=== PATIENT | female | born 1995 | race American Indian/Alaskan Native ===

== ENCOUNTER 2017-04-19 15:53 | Emergency (ER) | payer SELFPAY ==
[2017-04-19 17:30] LABS: Basophils # (Auto) 0.1 K/mm3 (0.0-0.1); Basophils % (Auto) 0.4 % (0.0-1.8); Eosinophils % (Auto) 0.1 % (0.0-4.3); Hematocrit 40.8 % (30.3-42.9); Hemoglobin 13.6 gm/dl (10.1-14.3); Lymphocytes # (Auto) 1.2 K/mm3 (1.2-5.4); Lymphocytes % (Auto) 9.1 % (13.4-35.0); Mean Corpuscular HGB Conc 33 % (30-34); Mean Corpuscular Hemoglobin 33 pg (28-32); Mean Corpuscular Volume 100 fl (79-97); Monocytes # (Auto) 0.6 K/mm3 (0.0-0.8); Monocytes % (Auto) 4.7 % (0.0-7.3); Platelet Count 442 K/mm3 (140-440); Red Blood Count 4.09 M/mm3 (3.65-5.03); Red Cell Distribution Width 13.5 % (13.2-15.2)
[2017-04-19 17:55] LABS: Bacteria,Urine 4+ /HPF (Negative); Bilirubin,Urine NEG (Negative); Blood,Urine LG (Negative); Color,Urine Yellow (Yellow); Mucus,Urine 1+ /HPF; Nitrite,Urine NEG (Negative)
[2017-04-19 17:58] LABS: HCG Qualitative,Urine Negative (Negative); RBC,Urine > 182.0 /HPF (0.0-6.0)
[2017-04-19 18:16] LABS: BUN/Creatinine Ratio 21; Blood Urea Nitrogen 17 mg/dL (7-17); Calcium 9.7 mg/dL (8.4-10.2); Hemolysis Index 28
[2017-04-19] MEDS ORDERED: MOTRIN PO ONE (22:18)
[2017-04-19] MEDS ORDERED: MORPHINE IV ONE (23:50)
[2017-04-19] MEDS ORDERED: ZOFRAN IV ONE (23:50)
--- NOTE | 2017-04-19 23:51 | Emergency Department Report ---
HPI - General Chief Complaint: Abdominal Pain Time Seen by Provider: 04/19/17 23:37 - HPI HPI: Room 2 The patient is a 21-year-old female presenting with chief complaint of abdominal pain. The patient states this afternoon at 13:00 after laying down she developed pain in her left flank. Patient states the pain has been constant with intermittent sharpness. The patient states motion helped somewhat but the pain is persistent. Patient admits nausea vomiting 1 in addition to hematuria. Patient denies dysuria but states she had vaginal discharge with a string of blood for one day last week. Patient denies history of fever. The patient gives her pain a score of 6/10 Location: [See above] Duration: Started at 13:00 Quality: Pain With a sharp component Severity: 6/10 Modifying factors: [see above] Context: [see above] Mode of transportation: [not driving] ED Past Medical Hx - Past Medical History Previous Medical History?: No - Surgical History Past Surgical History?: No - Family History Family history: no significant - Social History Smoking Status: Never Smoker Substance Use Type: None (denies illicit drug use) - Medications Home Medications: Home Medications Medication Instructions Recorded Confirmed Last Taken Type Ibuprofen [Motrin 800 MG tab] 800 mg PO Q8HR PRN #10 tablet 04/20/17 Unknown Rx traMADol [Ultram] 50 mg PO Q6HR PRN #10 tablet 04/20/17 Unknown Rx ED Review of Systems ROS: Stated complaint: BACK AND ABD PAIN Other details as noted in HPI Constitutional: denies: fever Gastrointestinal: abdominal pain, nausea, vomiting Genitourinary: hematuria, discharge. denies: dysuria Musculoskeletal: back pain Skin: denies: rash, lesions Neurological: denies: headache, weakness, paresthesias Psychiatric: denies: anxiety, depression Hematological/Lymphatic: denies: easy bleeding, easy bruising Physical Exam - Physical Exam Vital Signs: Vital Signs 04/19/17 04/19/17 04/19/17 16:56 23:34 23:35 Temperature 98.8 F Pulse Rate 90 100 H 107 H Respiratory 18 17 14 Rate Blood Pressure 106/60 122/75 O2 Sat by Pulse 100 100 99 Oximetry 04/19/17 23:37 Temperature 97.9 F Pulse Rate Respiratory Rate Blood Pressure O2 Sat by Pulse Oximetry Physical Exam: GENERAL: The patient is well-developed well-nourished female lying on stretcher not appearing to be in acute distress. [] HEENT: Normocephalic. Atraumatic. Extraocular motions are intact. Patient has moist mucous membranes. NECK: Supple. Trachea midline CHEST/LUNGS: Clear to auscultation. There is no respiratory distress noted. HEART/CARDIOVASCULAR: Regular. There is no tachycardia. There is no gallop rub or murmur. ABDOMEN: Abdomen is soft, nontender. Patient has normal bowel sounds. There is no abdominal distention. SKIN: There is no rash. There is no edema. There is no diaphoresis. NEURO: The patient is awake, alert, and oriented. The patient is cooperative. The patient has normal speech MUSCULOSKELETAL: There is left CVA tenderness. There is no evidence of acute injury. PELVIC: Copious thick white discharge present in the vaginal vault. No cervical lesions seen ED Course Vital Signs 04/19/17 04/19/17 04/19/17 16:56 23:34 23:35 Temperature 98.8 F Pulse Rate 90 100 H 107 H Respiratory 18 17 14 Rate Blood Pressure 106/60 122/75 O2 Sat by Pulse 100 100 99 Oximetry 04/19/17 23:37 Temperature 97.9 F Pulse Rate Respiratory Rate Blood Pressure O2 Sat by Pulse Oximetry ED Medical Decision Making - Lab Data Result diagrams: 04/19/17 17:16 04/19/17 17:16 Laboratory Tests 04/19/17 04/19/17 04/19/17 17:16 17:16 Unknown WBC 12.8 H RBC 4.09 Hgb 13.6 Hct 40.8 MCV 100 H MCH 33 H MCHC 33 RDW 13.5 Plt Count 442 H Lymph % (Auto) 9.1 L [place] % (Auto) 4.7 Eos % (Auto) 0.1 Baso % (Auto) 0.4 Lymph # 1.2 [place] # 0.6 Eos # 0.0 Baso # 0.1 Seg Neutrophils % 85.7 H Seg Neutrophils # 10.9 H Sodium 137 Potassium 4.1 Chloride 98.8 Carbon Dioxide 21 L Anion Gap 21 BUN 17 Creatinine 0.8 Estimated GFR > 60 BUN/Creatinine Ratio 21 Glucose 111 H Calcium 9.7 Urine Color Yellow Urine Turbidity Cloudy Urine pH 6.0 Ur Specific [place] 1.025 Urine Protein 30 mg/dl Urine Glucose (UA) Neg Urine Ketones 20 Urine Blood Lg Urine Nitrite Neg Urine Bilirubin Neg Urine Urobilinogen 2.0 Ur Leukocyte Esterase Mod Urine WBC (Auto) 6.0 Urine RBC (Auto) > 182.0 U Epithel Cells (Auto) 40.0 H Urine Bacteria (Auto) 4+ Urine Mucus 1+ Urine HCG, Qual Negative Wet prep-less than 20% clue cells, no yeast, no Trichomonas - Radiology Data Radiology results: report reviewed (CT abdomen and pelvis), image reviewed (CT abdomen and pelvis) FINAL REPORT EXAM: CT ABDOMEN PELVIS WO CON HISTORY: left flank pain, hematuria TECHNIQUE: Helical CT scan through the abdomen and pelvis without contrast. Images are reconstructed in the sagittal and coronal planes. PRIORS: None. FINDINGS: Solid organ and bowel evaluation is limited without intravenous contrast. Bowel evaluation is limited without oral contrast. The lung bases are clear. The liver, gallbladder, pancreas, spleen and adrenal glands appear normal. There are numerous bilateral kidney stones. The right kidney appears normal. There is mild left hydronephrosis and ureterectasis. There is no evidence of ureterolithiasis but there is a 2 mm stone in the bladder. There are multiple phleboliths in the pelvis. The pelvic organs appear grossly normal. The stomach appears grossly within normal limits. There are no abnormally dilated loops of bowel or acute inflammatory changes. The appendix is not discretely visualized but there are no inflammatory changes in the right lower quadrant around the area of the cecum. There is a large amount of stool throughout the colon. The abdominal aorta has a normal diameter. There is a well circumscribed smoothly marginated oval soft tissue mass in the anterior subcutaneous fat of the left abdomen, measuring 3.3 x 2.4 x 3.0 cm. The bones and subcutaneous soft tissues are unremarkable for age. IMPRESSION: 1. 3.3 cm subcutaneous soft tissue mass in the left anterior abdominal fat may represent a cyst or solid mass. Further evaluation with ultrasound is recommended. 2. There is a 2 mm stone in the bladder that was likely passed from the left ureter. Presently there is mild left hydronephrosis and ureterectasis. 3. Bilateral nephrolithiasis Transcribed By: YAN Dictated By: FIOR WILBURN MD Electronically Authenticated By: FIOR WILBURN MD Signed Date/Time: 04/19/172110 DD/ 10 TD/TT: 04/19/172110 - Differential Diagnosis renal colic, vaginitis, pyelonephritis Critical care attestation.: If time is entered above; I have spent that time in minutes in the direct care of this critically ill patient, excluding procedure time. ED Disposition Clinical Impression: Renal colic on left side Disposition: - TO HOME OR SELFCARE Is pt being admited?: No Does the pt Need Aspirin: No Condition: Stable Instructions: Renal Colic (ED), Abdominal Pain (ED) Additional Instructions: Return to the emergency department immediately should you develop worsening symptoms, fever, inability to tolerate food or liquid or any other concerns. Prescriptions: Ibuprofen [Motrin 800 MG tab] 800 mg PO Q8HR PRN #10 tablet PRN Reason: Pain traMADol [Ultram] 50 mg PO Q6HR PRN #10 tablet PRN Reason: Pain Referrals: ARON MOREL MD [Primary Care Provider] - 3-5 Days Time of Disposition: 02:11
--- NOTE | 2017-04-20 01:15 | Cat Scan Report ---
FINAL REPORT EXAM: CT ABDOMEN PELVIS WO CON HISTORY: left flank pain, hematuria TECHNIQUE: Helical CT scan through the abdomen and pelvis without contrast. Images are reconstructed in the sagittal and coronal planes. PRIORS: None. FINDINGS: Solid organ and bowel evaluation is limited without intravenous contrast. Bowel evaluation is limited without oral contrast. The lung bases are clear. The liver, gallbladder, pancreas, spleen and adrenal glands appear normal. There are numerous bilateral kidney stones. The right kidney appears normal. There is mild left hydronephrosis and ureterectasis. There is no evidence of ureterolithiasis but there is a 2 mm stone in the bladder. There are multiple phleboliths in the pelvis. The pelvic organs appear grossly normal. The stomach appears grossly within normal limits. There are no abnormally dilated loops of bowel or acute inflammatory changes. The appendix is not discretely visualized but there are no inflammatory changes in the right lower quadrant around the area of the cecum. There is a large amount of stool throughout the colon. The abdominal aorta has a normal diameter. There is a well circumscribed smoothly marginated oval soft tissue mass in the anterior subcutaneous fat of the left abdomen, measuring 3.3 x 2.4 x 3.0 cm. The bones and subcutaneous soft tissues are unremarkable for age. IMPRESSION: 1. 3.3 cm subcutaneous soft tissue mass in the left anterior abdominal fat may represent a cyst or solid mass. Further evaluation with ultrasound is recommended. 2. There is a 2 mm stone in the bladder that was likely passed from the left ureter. Presently there is mild left hydronephrosis and ureterectasis. 3. Bilateral nephrolithiasis
[2017-04-20] MEDS ORDERED: ROCEPHIN IM ONE (02:10)
[2017-04-20] MEDS ORDERED: ZITHROMAX PO ONE (02:10)
[2017-04-20] MEDS ORDERED: XYLOCAINE 1% MPF 5 mL INFILTRATI ONE (02:10)
[2017-04-20 02:47] VITALS: BP 115/55
== END 2017-04-20 02:53 | disposition home or self-care (01) ==
LOC: ED 15:53
DX: N23 Unspecified renal colic (principal)
CPT/HCPCS: 36415; 74176; 80048; 81001; 81025; 85025; 87210; 96372; 96374; 96375; 99285; J0696; J2270; J2405; 87591

== ENCOUNTER 2017-10-05 14:36 | Emergency (ER) | payer SELFPAY ==
[2017-10-05 15:13] LABS: HCG Qualitative,Urine Negative (Negative)
[2017-10-05 15:15] LABS: Bacteria,Urine 1+ /HPF (Negative); Bilirubin,Urine NEG (Negative); Blood,Urine LG (Negative); Color,Urine Yellow (Yellow); Urobilinogen,Urine < 2.0 mg/dL (<2.0)
[2017-10-05 15:19] LABS: WBC,Urine > 182.0 /HPF (0.0-6.0)
--- NOTE | 2017-10-05 15:39 | Emergency Department Report ---
ED Female HPI - General Chief complaint: Urogenital-Female Stated complaint: BLOOD IN URINE Time Seen by Provider: 10/05/17 15:12 Source: patient Mode of arrival: Ambulatory Limitations: No Limitations - History of Present Illness Initial comments: This is a 21-year-old -[place] female who presents with hematuria and suprapubic pain for 3 days. Patient reports recently being diagnosed with bacterial vaginitis 2-3 weeks ago and completing antibiotics prescribed from an urgent care clinic. Patient states symptoms improved for about 1 week after completion of antibiotics but now she is starting to have similar symptoms. Patient reports malodorous odor during intercourse. Last menstrual period August 15, 2017. Admits to unprotected intercourse with one partner. Patient states low pelvic pain is worse post full weight. Pain is nonradiating. Denies discharge, low back pain, frequency, urgency, dysuria, nausea or vomiting, and fever. MD Complaint: pelvic pain, possible STD -: days(s) (3 days) Location: suprapubic Radiation: non-radiating Severity: mild Severity scale (0 -10): 2 Quality: cramping, other (pressure) Consistency: intermittent Improves with: none Worsens with: urination, intercourse Are you Now?: No Last Menstrual Period: 08/15/17 EDC: 05/22/18 Associated Symptoms: denies other symptoms - Related Data Sexually active: Yes : 0 Para: 0 A: 0 Previous Rx's Medication Instructions Recorded Last Taken Type Ibuprofen [Motrin 800 MG tab] 800 mg PO Q8HR PRN #10 tablet 04/20/17 Unknown Rx traMADol [Ultram] 50 mg PO Q6HR PRN #10 tablet 04/20/17 Unknown Rx metroNIDAZOLE [Metronidazole] 500 mg PO BID #14 tablet 10/05/17 Unknown Rx Allergies Allergy/AdvReac Type Severity Reaction Status Date / Time No Known Allergies Allergy Unverified 04/19/17 16:56 ED Review of Systems ROS: Stated complaint: BLOOD IN URINE Other details as noted in HPI Constitutional: denies: chills, fever Respiratory: denies: cough, shortness of breath, wheezing Cardiovascular: denies: chest pain, palpitations Gastrointestinal: abdominal pain (suprapubic). denies: nausea, vomiting, diarrhea Genitourinary: hematuria. denies: urgency, dysuria, frequency, discharge Musculoskeletal: denies: back pain, joint swelling, arthralgia, myalgia Neurological: denies: headache, weakness, paresthesias Psychiatric: denies: anxiety, depression ED Past Medical Hx - Past Medical History Previous Medical History?: No - Surgical History Past Surgical History?: No - Social History Smoking Status: Never Smoker Substance Use Type: None - Medications Home Medications: Home Medications Medication Instructions Recorded Confirmed Last Taken Type Ibuprofen [Motrin 800 MG tab] 800 mg PO Q8HR PRN #10 tablet 04/20/17 Unknown Rx traMADol [Ultram] 50 mg PO Q6HR PRN #10 tablet 04/20/17 Unknown Rx metroNIDAZOLE [Metronidazole] 500 mg PO BID #14 tablet 10/05/17 Unknown Rx ED Physical Exam - General Limitations: No Limitations General appearance: alert, in no apparent distress - Respiratory Respiratory exam: Present: normal lung sounds bilaterally. Absent: respiratory distress - Cardiovascular Cardiovascular Exam: Present: regular rate, normal rhythm. Absent: systolic murmur, diastolic murmur, rubs, gallop - GI/Abdominal GI/Abdominal exam: Present: soft, normal bowel sounds. Absent: organomegaly, mass - External exam: Present: normal external exam Speculum exam: Present: erythema, vaginal discharge (curdy white discharge). Absent: cervical discharge, vaginal bleeding, foreign body, tissue, laceration Bi-manual exam: Present: normal bi-manual exam. Absent: cervical motion tendernes, adnexal tenderness, adnexal mass, uterine enlargement, uterine tenderness - Back Exam Back exam: Present: normal inspection, full ROM. Absent: CVA tenderness (R), CVA tenderness (L), rash noted - Neurological Exam Neurological exam: Present: alert, oriented X3, normal gait - Psychiatric Psychiatric exam: Present: normal affect, normal mood - Skin Skin exam: Present: warm, dry, intact, normal color. Absent: rash ED Course Vital Signs 10/05/17 14:40 Temperature 98.3 F Pulse Rate 94 H Respiratory 16 Rate Blood Pressure 127/74 O2 Sat by Pulse 100 Oximetry ED Medical Decision Making - Medical Decision Making This is a 21-year-old -[place] female who presents with hematuria and suprapubic pain for 3 days. Patient was examined by me. Vitals are normal and in no acute distress. Obtain wet prep via pelvic exam. Wet prep positive for clue cells, negative for Trichomonas and candidiasis. Given metronidazole 500 mg by mouth, and empirically treated with Rocephin 250 mg IM, and azithromycin 1 g by mouth for STD exposure. Start metronidazole 500 mg by mouth twice a day 7 days. Discharged home in stable condition. Discussed prevention options. F/ U with PCP or Health Department. Critical care attestation.: If time is entered above; I have spent that time in minutes in the direct care of this critically ill patient, excluding procedure time. ED Disposition Clinical Impression: Bacterial vaginitis, Exposure to STD Disposition: TO HOME OR SELFCARE Is pt being admited?: No Does the pt Need Aspirin: No Condition: Stable Instructions: Bacterial Vaginosis (ED), Safe Sex (ED), Sexually Transmitted Diseases (ED) Additional Instructions: Avoid drinking alcohol while taking antibiotics and for 24 hours after completion. Continue safe sexual intercourse. Follow up with Primary Care Provider or health department. Prescriptions: metroNIDAZOLE [Metronidazole] 500 mg PO BID #14 tablet Referrals: [facility] [Outside] - 3-5 Days [facility] [Outside] - 3-5 Days [facility] [Outside] - 3-5 Days Forms: STI Treatment and Prevention Time of Disposition: 17:14 Print Language: [id number]
[2017-10-05] MEDS ORDERED: FLAGYL PO ONE (17:15)
[2017-10-05] MEDS ORDERED: ZITHROMAX PO ONE (17:15)
[2017-10-05] MEDS ORDERED: ROCEPHIN IM ONE (17:15)
[2017-10-05] MEDS ORDERED: XYLOCAINE 1% MPF 5 mL INFILTRATI ONE (17:15)
[2017-10-05 18:04] VITALS: BP 117/70
== END 2017-10-05 18:31 | disposition home or self-care (01) ==
LOC: ED 14:36
DX: N76.0 Acute vaginitis (principal)
CPT/HCPCS: 81001; 81025; 87210; 87591; 96372; 99284; J0696